=== PATIENT | female | born 1980 | race Caucasian/White ===

== ENCOUNTER 2017-07-15 09:06 | Emergency (ER) | payer OTHER ==
[~2017-07-15] VITALS: Ht 175.3 cm; Wt 76.5 kg
[~2017-07-15 09:06] MED LIST: AMIT25TA9 PO; CITA20TA4 PO; LORA-741 PO; METH500T PO
[2017-07-15 09:15] VITALS: TEMP 37.7; Ht 175.3 cm; Wt 76.5 kg
[2017-07-15] MEDS ORDERED: PROPARACAINE HCL 0.5% OP SOLN 15 ML BTL ONE (09:26)
[2017-07-15] MEDS ORDERED: CIPROFLOXACIN HCL 0.3% OP SOLN 2.5 ML BTL OP STA (09:50)
[2017-07-15 10:03] VITALS: BP 120/72; PULSE 61; O2SAT 97
--- NOTE | 2017-07-15 10:12 | EMERGENCY ROOM VISIT NOTE ---
History First contact with patient: 09:23 Chief Complaint: EYE ASSESSMENT Stated Complaint: SORE/SCRATCHY RIGHT EYE History of Present Illness The patient is a 37 year old female who presents to the Emergency Room with complaints of irritation of the right eye. The patient reports that she noticed discomfort yesterday morning while wearing her contacts. She had no relief after removing her contact last night, noticing a smell across the eye with blurred vision. The patient reports that it felt no better this morning, and feels like a scratch in her eye. Her contacts were a new set from a contact lens lot that she has used before. She denies getting anything in the eyes or trauma to the eye. She denies any recent upper respiratory infection. She currently denies a headache or significant visual demise except for the film that is across the eye. She rates her discomfort a 3 out of 10. Patient is uncertain of her last tetanus immunization. Review of Systems 10 system review was performed and was negative except for pertinent positives and negatives as indicated in history of present illness Past Medical/Surgical History Medical Problems: (1) Ovarian Cyst Nec/Nos Surgical Problems: (1) History of hysterectomy Family History FH: heart disease FH: hypertension Social History Smoking Status: Never Smoker Alcohol Use: occasionally Marital Status: Occupation Status: employed Current/Historical Medications Scheduled Citalopram Hydrobromide (Citalopram Hydrobromide), 20 MG PO QAM Scheduled PRN Lorazepam (Ativan), 0.5 MG PO HS PRN for Anxiety Methocarbamol (Robaxin), 500 MG PO QID PRN for Muscle Spasm Physical Exam Vital Signs Date Time Temp Pulse Resp B/P (MAP) Pulse Ox O2 Delivery O2 Flow Rate FiO2 07/15/17 10:03 61 18 120/72 97 07/15/17 09:15 37.7 78 20 123/79 98 Room Air Right Eye Acuity: 20/70 Left Eye Acuity: 20/40 Physical Exam CONSTITUTIONAL: Healthy and well nourished. Alert and oriented X 3 with positive affect. Patient does not appear in any acute distress. HEENT: Normocephalic, atraumatic. Pupils equal, round and reactive. Patient has no conjunctival injection of the right eye. No periorbital edema, erythema or ecchymosis. EOMs intact without discomfort. No mucopurulent drainage from the eye. The patient is mildly photophobic. NECK: Full active range of motion without discomfort. RESPIRATORY: Clear to auscultation bilaterally with no wheezing, crackles, rhonchi or stridor. CARDIOVASCULAR: Regular rate and rhythm with no murmurs, rubs or gallops. INTEGUMENTARY: No rash or other significant dermatologic conditions noted. NEUROLOGIC: Cranial nerves II-XII grossly intact. No focal neurologic deficits noted. Medical Decision & Procedures Medications Administered Medications (Trade) Dose Ordered Sig/Bala Route Start Time Stop Time Status Last Admin Dose Admin Proparacaine HCl (Alcaine 0.5% Oph Soln) 225 drops STK-MED ONCE .ROUTE 07/15/17 09:26 07/15/17 09:27 DC 07/15/17 09:26 225 DROPS Ciprofloxacin HCl (Ciprofloxacin 0.3% Op Soln) 2 drops NOW STAT OP 07/15/17 09:50 07/15/17 09:51 DC 07/15/17 10:00 2 DROPS Procedure Slit lamp and fluorescein exam were performed. 2 drops of Alcaine were instilled into the right eye with complete resolution of her pain. Slit lamp exam does not show any debris within the lower conjunctival sac or under the upper eyelid with eversion. Negative hyphema, negative cell and flare. No mucopurulent or bloody drainage noted. Fluorescein exam shows a mild abrasion of the upper cornea from 10 to 2:00. There does appear to be a slightly deeper abrasion at 2:00. Negative Luis A test. ED Course Patient history and physical exam were performed. Nurse's notes were reviewed. Vital signs were reviewed and were normal. The patient had good relief of her discomfort with Alcaine eyedrops. Fluorescein exam shows evidence for a small corneal abrasion. The patient was dispensed Ciloxan 0.3% ophthalmic solution, and instructions for use. She was encouraged to refrain from contact lens use for the next 2 weeks, then start with a brand-new contacts, solutions and cosmetics. She was encouraged to apply ice for swelling. Ibuprofen or Tylenol if needed for additional pain relief. She was encouraged to follow-up with an subsea engineer, or return to the emergency department if symptoms are not improving within the 48 hours, or progressively worsening. The patient was happy with plan of care, voiced understanding of all discharge instructions, and denied any discomfort at the conclusion of my exam. Medical Decision Medication Reconcilliation Current Medication List: was personally reviewed by me Blood Pressure Screening Patient's blood pressure: Normal blood pressure Impression Primary Impression: Right corneal abrasion Additional Impression: Wears contact lenses Departure Information Dispostion Home / Self-Care Forms HOME CARE DOCUMENTATION FORM, IMPORTANT VISIT INFORMATION Patient Instructions My [facility] Additional Instructions 2 Cipro antibiotic eyedrops every 4-6 hrs (while awake) for 7 days. Ibuprofen 800 mg and/or Tylenol 1000 mg every 8 hours. You may also alternate these medications for more effective pain relief: Ibuprofen --4 HRS--> Tylenol --4 HRS--> ibuprofen --4 HRS--> Tylenol .... You may also intermittently apply a cool compress and wear sunglasses for additional relief. No contact lens use for 14 days. Start with all-new contact lenses, solution, rewetting drops and cosmetics. Follow-up with an subsea engineer/sock and stocking ironer, or return to the emergency department if no improvement within 48 hrs. Problem Qualifiers Primary Impression: Right corneal abrasion Encounter type: initial encounter Qualified Codes: S05.01XA - Injury of conjunctiva and corneal abrasion without foreign body, right eye, initial encounter
== END 2017-07-15 10:04 | disposition home or self-care (01) ==
LOC: C.EDB 09:07
DX: S05.01XA Injury of conjunctiva and corneal abrasion without foreign body, right eye, initial encounter (principal); X58.XXXA Exposure to other specified factors, initial encounter; Z97.3 Presence of spectacles and contact lenses; N83.209 Unspecified ovarian cyst, unspecified side; Z90.710 Acquired absence of both cervix and uterus; Z79.899 Other long term (current) drug therapy; Z82.49 Family history of ischemic heart disease and other diseases of the circulatory system